=== PATIENT | female | born 1945 | race Caucasian/White ===

== ENCOUNTER 2024-11-30 10:06 | Inpatient (IN) ==
[2024-11-30] MEDS ORDERED: ALBUTEROL 0.083% NEB NEB PRN (11:04)
[2024-11-30] MEDS: DUONEB NEB SCH (11:09)
[2024-11-30] MEDS: OMNIPAQUE 350 MG/ML 100ML IVP ONE (11:30)
--- NOTE | 2024-11-30 12:29 | PCM ---
Date of Service Date Seen by Provider: 11/30/24 Time Seen by Provider: 08:30 Admit Day/Time Admission Date: 11/30/24 Reason for Admission Chief Complaint: ACUTE HYPOXIC, RESPIRATORY FAILURE Hospital Provider Hospital Provider: ABHIJEET KIRAN, [facility] [place] Care Physician Primary Care Physician: ABE DOUGHERTY MD History of Present Illness History of Present Illness: Patient is a 79 year old female with pmhx of CAD s/p CABG, hypertension, SSS s/p pacemaker, hyperlipidemia, ischemic bowel, severe PVD s/p RLE BKA who presents to swingbed program from [facility] for further therapy. Patient was admitted at [facility] from 11/16-11/23. In September of 2024 she underwent bilateral lower ext revascularizations consisting of a right ileo profunda femoral bypass on the right and an extended left illiofemoral and profunda femoral endarterectomy and patch angioplasty on the left. Her LLE showed great improvement with this. However she continued ot have RLE pain and underwent a distal lower ext arterial bypass with bovine carotid artery conduit. She presented again with continued RLE pain. US showed continued occluded vessels. She was admitted and BKA was discussed. She agreed. Post surgery, cilostazol was stopped and she was continued on ASA, xarelto, and statin. Overall she has done well post op but is requiring therapy. Plan is to go home with son following swingbed. Patient complains of some phantom limb pain, specifically her pinky toe. She states her gabapentin was started a couple weeks ago at least. Son states patient does sometimes get confused in late afternoons between 1500- 1800, but it usually resolves by nighttime. Initially, patient was doing very well in swingbed program. Tolerating therapy and meeting goals. Plan was previously discharge today. However, around 5 am on 11/28 patient was coughing, gasping for air, and more confused than baseline. Found to have O2 sat in the upper 80s. She was placed on 2L and sat improved to low 90s. Chest x-ray completed as well as labs. CBC showed white count of 18. Chest xray showed right sided pneumonia. Due to patient being in and out of the hospital, she has been treated with zosyn to cover hospital acquired pneumonia. Oxygen was weaned down to 1L yesterday morning and patient had been tolerating well. Fevers had resolved until yesterday evening around 1730. At that time, O2 sat was again in the upper 80s and fever was 101. Oxygen increased back to 2L at that time. Another hypoxia episode occurred around 0330 this morning and patient is now requiring 3L. BNP obtained with am labs and found to be >3000. Patient does have history of CABG and OK in the past. Due to continued medical decline despite efforts, patient admitted to inpatient [facility] Medical History (Updated 11/30/24 @ 14:14 by TESSIE MANZO RN) Pneumonia J18.9 - Pneumonia, unspecified organism (ICD-10) Lung mass R91.8 - Other nonspecific abnormal finding of lung field (ICD-10) Amputation of right lower extremity below knee S88.111A - Complete traumatic amputation at level between knee and ankle, right lower leg, initial encounter (ICD-10) Bypass graft stenosis Right leg. Cow vein used. T82.858A - Stenosis of other vascular prosthetic devices, implants and grafts, initial encounter (ICD-10) Ruptured appendix K35.32 - Acute appendicitis with perforation, localized peritonitis, and gangrene, without abscess (ICD-10) Artery dissection Both legs. Arteries taken out of both armpits for resection of legs. I77.70 - Dissection of unspecified artery (ICD-10) Pacemaker Z95.0 - Presence of cardiac pacemaker (ICD-10) Heart attack I21.9 - Acute myocardial infarction, unspecified (ICD-10) Surgical History History of bowel resection Removed 80cm of small bowel. Z90.49 - Acquired absence of other specified parts of digestive tract (ICD- 10) History of hysterectomy Z90.710 - Acquired absence of both cervix and uterus (ICD-10) Family History Mother Lupus (systemic lupus erythematosus) FATHER Cancer Social History Smoking and tobacco status: Former smoker Allergies Allergies Allergy/AdvReac Type Severity Reaction Status Date / Time nitrofurantoin AdvReac Verified 11/23/24 18:05 Erythromycin AdvReac Uncoded 11/23/24 18:05 Current Medications Home Medications Acetaminophen (Acetaminophen 325 Mg Tablet) 650 mg PO Q4H PRN PRN Reason: Pain Albuterol Sulfate (Albuterol Sulfate 0.083% Vial.Neb) 2.5 mg NEB RTQ4H PRN PRN Reason: Wheezing Albuterol/Ipratropium (Ipratropium/Albuterol Vial.Neb) 3 ml NEB RTQ6H [facility] Last Admin: 11/30/24 11:09 Dose: 3 ml Alprazolam (Alprazolam 0.25 Mg Tablet) 0.25 mg PO BEDTIME PRN PRN Reason: Anxiety Ascorbic Acid (Ascorbic Acid 500 Mg Tablet) 500 mg PO DAILY [facility] Aspirin (Aspirin 81 Mg Tablet.Dr) 81 mg PO DAILY [facility] Atorvastatin Calcium (Atorvastatin Calcium 20 Mg Tablet) 40 mg PO DAILY [facility] Buspirone HCl (Buspirone Hcl 10 Mg Tablet) 5 mg PO 2XD [facility] Calcium Carbonate/Glycine (Calcium Carbonate 500 Mg Tab.Chew) 500 mg PO Q6HR PRN PRN Reason: Heartburn Citalopram Hydrobromide (Citalopram Hydrobromide 20 Mg Tablet) 40 mg PO DAILY [facility] Docusate Sodium (Docusate Sodium 100 Mg Capsule) 100 mg PO BID [facility] Doxycycline Hyclate (Doxycycline Hyclate 100 Mg Capsule) 100 mg PO Q12HR [facility] Stop: 12/03/24 20:59 Famotidine (Famotidine 20 Mg Tablet) 20 mg PO BIDAC2 [facility] Furosemide (Furosemide Inj 20 Mg/2 Ml Vial) 20 mg IVP Q8HR [facility] Gabapentin (Gabapentin 300 Mg Capsule) 300 mg PO TID [facility] Piperacillin Sod/Tazobactam (Sod 4.5 gm/ Sodium Chloride) 100 mls @ 200 mls/hr IV Q6HR [facility] Stop: 12/03/24 14:29 Non-Formulary Medication (Rivaroxaban) 2.5 mg PO BID [facility] Non-Formulary Medication (Bisacodyl) 5 mg PO DAILY PRN PRN Reason: Constipation Non-Formulary Medication (Sennosides-Docusate Sodium [Colace 2-In-1]) 1 tab-cap PO BID [facility] Ondansetron HCl (Ondansetron Hcl 4 Mg Tablet) 4 mg PO Q6H PRN PRN Reason: Nausea / Vomiting Oxycodone/Acetaminophen (Oxycodone/Acetaminophen 10/325 Mg Tablet) 1 tab PO Q4HR PRN PRN Reason: Pain Last Admin: 11/30/24 13:25 Dose: 1 tab Pantoprazole Sodium (Pantoprazole Sodium 40 Mg Vial) 40 mg IVP DAILY MARY JANE Polyethylene Glycol (Polyethylene Glycol 17 Gm Powd.Pack) 17 gm PO DAILY PRN PRN Reason: Constipation alprazolam 0.25 mg tablet 0.25 mg PO BEDTIME PRN anxiety 11/23/24 [History Confirmed 11/30/24] ascorbic acid (vitamin C) 500 mg tablet (C-500) 500 mg PO DAILY 11/23/24 [History Confirmed 11/30/24] aspirin 81 mg tablet,delayed release (Adult Low Dose Aspirin) 81 mg PO DAILY 11/23/24 [History Confirmed 11/30/24] atorvastatin 40 mg tablet 40 mg PO DAILY 11/23/24 [History Confirmed 11/30/24] buspirone 5 mg tablet 5 mg PO 2XD 11/23/24 [History Confirmed 11/30/24] citalopram 40 mg tablet 40 mg PO DAILY 11/23/24 [History Confirmed 11/30/24] gabapentin 100 mg capsule 100 mg PO 3XD 11/23/24 [History Confirmed 11/30/24] hydrocodone 5 mg-acetaminophen 325 mg tablet 2 tab PO Q4H PRN Moderate pain 11/23/24 [History Confirmed 11/30/24] naloxone 4 mg/actuation nasal spray 4 mg intranasal Q2-3M PRN opioid overdose 11/23/24 [History Confirmed 11/30/24] oxycodone 10 mg tablet 10 mg PO Q4HR PRN Moderate to severe pain 11/23/24 [History Confirmed 11/30/24] rivaroxaban 2.5 mg tablet 2.5 mg PO BID 11/23/24 [History Confirmed 11/30/24] sennosides 8.6 mg-docusate sodium 50 mg tablet (Colace 2-In-1) 1 tab-cap PO BID 11/23/24 [History Confirmed 11/30/24] acetaminophen 325 mg tablet 650 mg PO Q4H PRN Mild to moderate pain 11/30/24 [History Confirmed 11/30/24] amoxicillin 875 mg-potassium clavulanate 125 mg tablet 1 tab PO Q12H 11/30/24 [History Confirmed 11/30/24] bisacodyl 5 mg tablet 5 mg PO DAILY PRN constipation 11/30/24 [History Confirmed 11/30/24] calcium carbonate 500 mg PO Q6HR PRN heartburn 11/30/24 [History Confirmed 11/30/24] docusate sodium 100 mg capsule (Colace) 100 mg PO BID 11/30/24 [History Confirmed 11/30/24] gabapentin 300 mg capsule 300 mg PO TID 11/30/24 [History Confirmed 11/30/24] ipratropium 0.5 mg-albuterol 3 mg (2.5 mg base)/3 mL nebulization soln 3 ml inhalation Q6H 11/30/24 [History Confirmed 11/30/24] omeprazole 40 mg capsule,delayed release 40 mg PO QDAC2 11/30/24 [History Confirmed 11/30/24] ondansetron HCl 4 mg tablet 4 mg PO Q6H PRN nausea and vomiting 11/30/24 [History Confirmed 11/30/24] polyethylene glycol 3350 17 gram/dose oral powder (Miralax) 17 g PO DAILY PRN constipation 11/30/24 [History Confirmed 11/30/24] Opioid Naive vs. Tolerant Does Patient Take Opioids?: Yes Is Patient Opioid Naive?: No What is Opioid Naive?: *Opioid Naive implies the patient is not already taking opioids or not chronically receiving opioids on a daily basis. *PRN dosing is not "usually" associated with tolerance. *Patients are at higher risk of over-sedation and aspiration. Is Patient Opioid Tolerant?: No What is Opioid Tolerant?: *Opioid Tolerance implies less than the expected response to an opioid. *Acquired tolerance is defined by the patient taking 60mg of oral morphine daily (or equianalgesic dose of another opioid) for 1 week or more. *Often associated with chronic pain. *May take more than usual dose to achieve desired pain control. Review of Systems Constitutional: Reports Fever Eyes: Reports No symptoms Ears: Reports No symptoms Nose: Reports No symptoms Mouth: Reports No symptoms Throat: Reports No symptoms Cardiovascular: Reports No symptoms Respiratory: Reports Cough and Shortness of air Gastrointestinal: Reports No symptoms Genitourinary: Reports No Symptoms Musculoskeletal: Reports No symptoms Endocrine: Reports No symptoms Hematology: Reports No symptoms Immunology: Reports No symptoms Neurological: Reports No symptoms Psychiatric: Reports No symptoms Physical examination Most Recent Vital Signs: Most Recent Vital Signs Telemetry Heart Rate 81 11/29/24 07:00 Telemetry SPO2 92 L 11/29/24 07:00 Appearance: Positive No Apparent Distress and Thin Skin: Positive Warm, Good Turgor and Good Color Neck: Positive Supple and Midline Trachea Chest/Lungs: Positive Symmetrical With Equal Breath Sounds, Rhonci and Other (fi ne crackles to R lung base) Heart: Positive RRR and Pulses Normal GI/: Positive Soft, Nontender, Bowel Sounds Normal and No Distention Musculoskeletal: Positive Not Examined Extremities: Positive Amputations (R BKA, dressing intact), Intact Peripheral Pulses and Stable Joints Without Laxity Neurological: Positive Sensation Intact, Motor intact, Reflexes Intact, Alert and Oriented (person, place) Imaging Imaging: EXAM: CHEST RADIOGRAPH TECHNIQUE: Single frontal chest radiograph. HISTORY: Shortness of breath. COMPARISON: 11/05/2023. FINDINGS: Cardiomediastinal silhouette in central pulmonary vessels appear normal with decreased lung expansion. New reticular appearing air space disease in the right upper lobe and mid right lung. No associated pleural effusion or pneumothorax. The left lung appears clear. Bones and soft tissues are otherwise unchanged. IMPRESSION: 1. New reticular airspace disease in the right upper lobe and right midlung concerning for pneumonia without associated pleural effusion. No additional acute process is identified. Review Statement Review Statement: I have independently reviewed and interpreted the labs/EKGs/imaging that were ordered by the ER provider. I have reviewed all outside records that are available currently in our EMR including imaging/notes/labs from previous visit s. Plan Plan: 1. Acute Hypoxic Respiratory Failure in setting of HAP and CHF - wean oxygen as tolerated, nebs, diuresis, checking chest CT to r/o other etiologies 2. HAP - zosyn Q6H, add doxy for atypical coverage, check MRSA, strep pneumo, legionella, and respiratory panel 3. New onset CHF - last echo 05/2022 EF 55-60% with left diastolic dysfunction, echo ordered, lasix 20 mg IVP Q8H, I&O, daily weight 4. 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 Dougherty, has f/u on 12/05. Plan for prosthesis in future. Dressing changes every other day with xeroform over incision, gauze wrap, and then bee wrap. Change prn if soiled. No drainage noted on dressings today. PTOT. 5. 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 gabapentin ordered 300 tid and oxy was changed to percocet when she first arrived. Cont xarelto, aspirin and statin. 6. Mood disorder - Worsened by recent surgery and loss of limb, reasonably so. Cont home meds. DVT Prophylaxis: Xarelto Time Spent: Greater than 80 minutes spent with patient, 50% of the time spent with this patient was devoted to counseling and coordination of care. [facility] minutes spent discussing advance care planning. Disposition: Admit to: Med/Surg Inpatient Discussed Plan of Care with Dr. Tamar Salazar. Medications Medication Orders: Medications Ordered Category Date Time Status Albuterol Sulfate 0.083% Neb [Albuterol 0.083% Neb] Meds 11/30/24 11:04 Active 2.5 mg NEB RTQ4H PRN Doxycycline Hyclate Meds 11/30/24 21:00 Active 100 mg PO Q12HR Furosemide [Lasix] Meds 11/30/24 14:00 Active 20 mg IVP Q8HR Ipratropium/Albuterol Neb [Duoneb] Meds 11/30/24 11:00 Active 3 ml NEB RTQ6H Piperacillin Sodium/Tazobactam [Zosyn 4.5 gm] 4.5 gm Meds 11/30/24 14:30 Active 0.9 % Sodium Chloride [Sodium Chloride 100Ml] 100 ml IV Q6HR Additional Comments Additional Comments: CT scan and Echo results discussed with patient and family. Continue above treatment plan. Patient will need referral for lung biopsy. EXAM: CHEST CTA WITH CONTRAST (PULMONARY ARTERY) COMPARISON: 02/14/2021. FINDINGS: Pulmonary Embolism: - Diagnostic quality: Adequate. - Central (Main/Lobar/Interlobar): No embolus. Dilated. - Peripheral (Segmental/Subsegmental): No embolus. - Right ventricle/Left ventricle ratio: Normal. Lines, Tubes, Devices: Sternal wires and mediastinal clips. Left-sided dual chamber pacemaker. Lung Parenchyma and Airways: Central airways are patent without endobronchial lesion. Mild atelectasis at the lung bases posteriorly. Patchy air space disease in the right upper lobe posteriorly and in the right lower lobe superiorly. Mass in the right upper lobe medially measuring 4.2 x 3.8 cm in AP and transverse dimensions. Calcified granuloma in the left upper lobe anteriorly. No other mass or nodule. Pleural Space: Small bilateral pleural effusions with right larger than left. No pneumothorax. Thoracic Inlet, Mediastinum, and Rae: Thyroid gland is normal. . Right hilar thickening with lymphadenopathy measuring up to 1.2 cm. No left hilar lymphadenopathy. Benign calcified left hilar lymph nodes. Fluid distending the esophagus. Heart, Vessels, and Pericardium: The thoracic aorta is not dilated. No aortic dissection. Calcification in the aorta consistent with atherosclerosis. Coronary artery calcification. The heart chambers are not enlarged. There is no pericardial effusion or thickening. Bones and Soft Tissues: There is no fracture or lytic lesion. Chest wall soft tissues are unremarkable. Upper Abdomen: Benign punctate calcifications in the spleen. Normal visualized portions of liver and adrenals. Cholecystectomy clips. IMPRESSION: 1. No evidence of pulmonary embolism. Dilated central pulmonary arteries consistent with pulmonary hypertension. 2. Mass in the right upper lobe measuring 4.2 cm. Mild right hilar lymphadenopathy. Suspicious for neoplasm. 3. Previous median sternotomy. Dual chamber pacemaker. 4. Mild atelectasis at the lung bases posteriorly. 5. Patchy pneumonia in the right lung. 6. Fluid distension of the esophagus. 7. Atherosclerosis and coronary artery calcification. Number a previous cholecystectomy. 9. Otherwise unremarkable CT scan of the chest.
--- NOTE | 2024-11-30 12:32 | CT ---
EXAM: CHEST CTA WITH CONTRAST (PULMONARY ARTERY) HISTORY: Chest pain and shortness of breath. TECHNIQUE: CTA acquisition of the chest from the thoracic inlet to the upper abdomen following IV con trast administration timed to filling of the pulmonary artery. IV Contrast: 100 mL of Omnipaque 350 administered. 3D/MIP/VR images were utilized. CT Dose Reduction Techniques Employed: Yes. COMPARISON: 02/14/2021. FINDINGS: Pulmonary Embolism: - Diagnostic quality: Adequate. - Central (Main/Lobar/Interlobar): No embolus. Dilated. - Peripheral (Segmental/Subsegmental): No embolus. - Right ventricle/Left ventricle ratio: Normal. Lines, Tubes, Devices: Sternal wires and mediastinal clips. Left-sided dual chamber pacemaker. Lung Parenchyma and Airways: Central airways are patent without endobronchial lesion. Mild atelectas is at the lung bases posteriorly. Patchy air space disease in the right upper lobe posteriorly and i n the right lower lobe superiorly. Mass in the right upper lobe medially measuring 4.2 x 3.8 cm in A P and transverse dimensions. Calcified granuloma in the left upper lobe anteriorly. No other mass or nodule. Pleural Space: Small bilateral pleural effusions with right larger than left. No pneumothorax. Thoracic Inlet, Mediastinum, and Rae: Thyroid gland is normal. . Right hilar thickening with lymph adenopathy measuring up to 1.2 cm. No left hilar lymphadenopathy. Benign calcified left hilar lymph nodes. Fluid distending the esophagus. Heart, Vessels, and Pericardium: The thoracic aorta is not dilated. No aortic dissection. Calcificat ion in the aorta consistent with atherosclerosis. Coronary artery calcification. The heart chamber s are not enlarged. There is no pericardial effusion or thickening. Bones and Soft Tissues: There is no fracture or lytic lesion. Chest wall soft tissues are unremarkab le. Upper Abdomen: Benign punctate calcifications in the spleen. Normal visualized portions of liver an d adrenals. Cholecystectomy clips. IMPRESSION: 1. No evidence of pulmonary embolism. Dilated central pulmonary arteries consistent with pulmonary hypertension. 2. Mass in the right upper lobe measuring 4.2 cm. Mild right hilar lymphadenopathy. Suspicious for neoplasm. 3. Previous median sternotomy. Dual chamber pacemaker. 4. Mild atelectasis at the lung bases posteriorly. 5. Patchy pneumonia in the right lung. 6. Fluid distension of the esophagus. 7. Atherosclerosis and coronary artery calcification. Number a previous cholecystectomy. 9. Otherwise unremarkable CT scan of the chest. All CT scans are performed using dose optimization techniques as appropriate to the performed exam an d include at least one of the following: Automated exposure control, adjustment of the mA and/or kV according t o size, and the use of iterative reconstruction technique.
[2024-11-30] MEDS: PERCOCET 10-325 PO PRN (13:25)
[2024-11-30] MEDS ORDERED: MIRALAX PO PRN (14:13)
[2024-11-30] MEDS ORDERED: ZOFRAN TAB PO PRN (14:13)
[2024-11-30] MEDS ORDERED: TUMS CHEWABLE PO PRN (14:13)
[2024-11-30] MEDS ORDERED: TYLENOL PO PRN (14:13)
[2024-11-30] MEDS ORDERED: DULCOLAX PO PRN (14:31)
[2024-11-30] MEDS: ZOSYN 4.5 GM 4.5 GM in SODIUM CHLORIDE 100ML 100 ML IV SCH (14:58)
[2024-11-30] MEDS: NEURONTIN PO SCH (14:59)
[2024-11-30] MEDS: LASIX IVP SCH (14:59)
[2024-11-30] MEDS: PEPCID PO SCH (17:30)
[2024-11-30 18:05] VITALS: BMI 17.7
[2024-11-30] MEDS: RIVAROXABAN 2.5 MG PO SCH (20:19)
[2024-11-30] MEDS: DOXYCYCLINE HYCLATE PO SCH (20:19)
[2024-11-30] MEDS: COLACE PO SCH (20:19)
[2024-11-30] MEDS: BUSPAR PO SCH (20:19)
[2024-11-30] MEDS: XANAX PO PRN (20:19)
[2024-11-30] MEDS: SENNA PO SCH (20:19)
[2024-11-30] MEDS ORDERED: SENNOSIDES DOCUSATE SODIUM PO SCH (21:00)
[2024-11-30 21:15] LABS: BORDETELLA PARAPERTUSSIS (PCR) NOT DETECTED (NOT DETECT); BORDETELLA PERTUSSIS (PCR) NOT DETECTED (NOT DETECT); CHLAMYDIA PNEUMONIAE (PCR) NOT DETECTED (NOT DETECT); CORONAVIRUS 229E (PCR) NOT DETECTED (NOT DETECT); CORONAVIRUS HKU1 (PCR) NOT DETECTED (NOT DETECT); CORONAVIRUS NL63 (PCR) NOT DETECTED (NOT DETECT); CORONAVIRUS OC43 (PCR) NOT DETECTED (NOT DETECT); HUMAN METAPNEUMOVIRUS (PCR) NOT DETECTED (NOT DETECT); HUMAN RHINOVIRUS/ENTEROV (PCR) NOT DETECTED (NOT DETECT); INFLUENZA A H1 (PCR) NOT DETECTED (NOT DETECT); INFLUENZA A H1-2009 (PCR) NOT DETECTED (NOT DETECT); INFLUENZA A H3 (PCR) NOT DETECTED (NOT DETECT); INFLUENZA B (PCR) NOT DETECTED (NOT DETECT); MYCOPLASMA PNEUMONIAE (PCR) NOT DETECTED (NOT DETECT); PARAINFLUENZA VIRUS 1 (PCR) NOT DETECTED (NOT DETECT); PARAINFLUENZA VIRUS 2 (PCR) NOT DETECTED (NOT DETECT); PARAINFLUENZA VIRUS 3 (PCR) NOT DETECTED (NOT DETECT); PARAINFLUENZA VIRUS 4 (PCR) NOT DETECTED (NOT DETECT); RESPIRATORY SYNCYTIAL V (PCR) NOT DETECTED (NOT DETECT); SARS_COV_2 (PCR) NOT DETECTED (NOT DETECT)
[2024-11-30 22:10] LABS: ADENOVIRUS (PCR) NOT DETECTED (NOT DETECT)
[2024-12-01] MEDS: PROTONIX IVP SCH (05:02)
[2024-12-01 05:15] LABS: BASOPHILS # (AUTO) 0.1 K/uL (0-0.2); BASOPHILS % (AUTO) 0.8 % (0.0-3.0); EOSINOPHILS # (AUTO) 0.6 K/ul (0.0-0.7); EOSINOPHILS % (AUTO) 8.7 % (0.0-7.0); HEMATOCRIT 26.8 % (37.0-47.0); HEMOGLOBIN 8.4 g/dl (12.0-16.0); IMMATURE GRANULOCYTE % (AUTO) 0.5 % (0.0-5.0); LYMPHOCYTES # (AUTO) 0.9 K/uL (0.60-3.4); LYMPHOCYTES % (AUTO) 13.9 (10.0-50.0); MEAN CORPUSCULAR HEMOGLOBIN 28.5 pg (27.0-31.0); MEAN CORPUSCULAR HGB CONC 31.3 (31.8-35.4); MEAN CORPUSCULAR VOLUME 90.8 fl (81.0-99.0); MONOCYTES # (AUTO) 0.5 K/uL (0.4-2.0); MONOCYTES % (AUTO) 7.4 (0-10); NEUTROPHILS # (AUTO) 4.4 K/ul (2.0-6.9); NEUTROPHILS % (AUTO) 68.7 % (42.2-75.2); PLATELET COUNT 371 10^3/uL (140-440); RDW COEFFICIENT OF VARIATION 14.2 % (11.6-14.8); RED BLOOD COUNT 2.95 10^6/ul (4.20-5.40); WHITE BLOOD COUNT 6.46 K/ul (4.6-10.2)
[2024-12-01 05:26] LABS: ALANINE AMINOTRANSFERASE 19.1 U/L (0-35); ALBUMIN 2.94 g/dL (3.5-5.0); ALKALINE PHOSPHATASE 67.2 U/L (53-141); ASPARTATE AMINO TRANSFERASE 25.5 U/L (14-36); BILIRUBIN,TOTAL 0.4 mg/dL (0.2-1.3); BLOOD UREA NITROGEN 11.4 mg/dL (7-17); CALCIUM 8.56 mg/dL (8.4-10.2); CHLORIDE 95.7 mmol/L (98-107); CREATININE 0.65 mg/dL (0.60-1.30); GLUCOSE 98.4 mg/dL (74-106); POTASSIUM 3.09 mmol/L (3.5-5.1); SODIUM 134.5 mmol/L (134.5-145); TOTAL PROTEIN 5.7 g/dL (6.3-8.2)
[2024-12-01] MEDS: ASPIRIN EC PO SCH (09:28)
[2024-12-01] MEDS: LIPITOR PO SCH (09:31)
[2024-12-01] MEDS: K-DUR PO ONE (09:38)
[2024-12-01] MEDS: VITAMIN C PO SCH (09:38)
[2024-12-01] MEDS: CELEXA PO SCH (09:38)
--- NOTE | 2024-12-01 10:07 | RS.OTINEVL ---
Subjective Patient information Date of Evaluation: 12/01/24 Date of Arrival on Unit: 11/30/24 Admitted From:: Facility Transfer (Transfer from [facility] for swing bed.) Diagnosis: R BKA, Weakness, PRECAUTIONS: Fall risk Usual Living Arrangement: Alone Living Arrangement Comments: pt lives alone, however is going to go home with son at Discharge Home Environment: House, Stairs (few) (2 steps ) and Rail Medical History: Hypertension, Arthritis, Vascular Disease and Cancer (malignant melanoma L foot.) Medical History Comments:: Anxiety, Major depressive disorder, GERD, CAD, [place], PAD, SSS, ischemic bowel, osteoporosis LATEX ALLERGY?: No Surgical History: Cholecystectomy, Hysterectomy and CABG Surgical History Comments:: Pacemaker, R ileo profunda femoral bypass, L ilio femoral and profunda femora endarterectomy and patch angioplasty, Redo arterial bypass w bovine carotid artery conduit. Medications: see chart Subjective Information/ Patient Comments:: "I need to go to the bathroom." Level of function Prior to this admission, the patient could do the following:: Independent Selfcare, Independent ADL's, Independent Ambulation, Partially Dependent Ambulation, Perform Nurse Wound/Cooking, Drive and Participated in Social Activities Outside home Abilities prior to this admission: Pt was using a RW at home. Pt was living alone. Current Level of Function: Partially Dependent Comments: Pt is CGA with using RW today to transfer to the bathroom and toilet. Pt CGA for toilet transfer. Pt independent with personal hygiene and CGA for toilet management. Current Equipment Used at Home: Walker, wheeled Pain Assessment Pain Side: right Pain Location Body Site: R BKA Pain Aggravating Factors: Standing and Walking Pain Alleviating Factors: Ice and Medication Interventions Objective Patient Orientation: Person and Situation Current Interventions: IV's and Oxygen Interventions ROM Right Upper Extremity AROM: Slight limitation Left Upper Extremity AROM: Slight limitation Strength Right Upper Extremity: Mild Weakness Left Upper Extremity: Mild Weakness Sensation Right Upper Extremity: Intact/Normal Left Upper Extremity: Intact/Normal Balance Sitting Balance Static Sitting Balance: Good Dynamic Sitting Balance: Good Standing Balance Static Standing Balance: Fair Dynamic Standing Balance: Fair (Pt hops well with RW.) ADL Skills Self Feeding Self Feeding: Independent Grooming Grooming: Set Up Only Grooming Set-up: Sitting Bathing Bathing UE: Independent Bathing LE: Mod Assist and 1 person assist Bathing Set-up: Shower Dressing Dressing UE: Independent Dressing LE: Supervision Toilet Management Toilet Hygiene: Independent Toilet Clothing Management: Supervision Functional Mobility Bed Mobility Rolling R/L: Independent Scooting: Independent Supine to Sit: Independent Transfers Sit to Stand: CGA Stand to Sit: CGA Stand Pivot Transfers: CGA Ambulation Weight Bearing Status: FWB Assistive Device Used: Rolling Walker Orthotic/Prosthetic Device: No Assistance needed with Ambulation: CGA Safety Awareness Safety Awareness: Good GULSHAN INDEX SCORE: . Additional Treatment Performed Additional units charged ADL: 15 Time with patient Length of Evaluation: 32 Total treatment time: 34 Activities Do you enjoy playing games?: Yes Would you be interested in leaving your room for activities?: Yes Would you enjoy group activities?: Yes Do you have difficulty with your vision?: Yes Patient Interests:: Reading Books/Magazines, Watching Television, Puzzles/Games and Visiting/Socializing Patient Education Patient Education: Home Exercise Program and Education of Plan of Care Teaching Recipient: Patient and Family Teaching Methods: Discussion and Demonstration Assessment Problem List:: Decreased level of function, Requires training/education, Decreased safety/Risk of falls, Weakness and Pain limits previous level of function Rehab Potential: Good Further Therapy Indicated?: Yes Evaluation Complexity: HISTORY: Medium, EXAM OF BODY SYSTEMS: Medium and CLINICAL DECISION MAKING: Medium Patient's Goal(s): Pt to be able to take care of herself at her son's house for a while. Short Term Goals Goals GOAL 1: Pt to increase standing for grooming at the sink to 10 min. Goal to be met by: 12/03/24 GOAL 2: Pt to be sup for 1 arm pulling up pants after toileting. Goal to be met by: 12/03/24 GOAL 3: Pt to increase BUE strength to 5/5 to increase safety of hop with RW. Goal to be met by: 12/03/24 GOAL 4: Pt to increase dyn. std. bal. on LLE w/RW to F+ to increase safety of ADLs. Goal to be met by: 12/03/24 GOAL 5: Pt to complete toilet transfers SUP with RW. Goal to be met by: 12/03/24 GOAL 6: Pt to increase LE dressing of clothes to be independent. Goal to be met by: 12/03/24 Longterm Goals GOAL 1: Pt to be Independent with ADLs. Goal to be met by: 12/04/24 GOAL 2: Pt to increase dyn. std. bal. to G-. Goal to be met by: 12/04/24 GOAL 3: Pt to be Sup or SBA for ADLS. Goal to be met by: 12/04/24 Plan Plan of Care: Therapeutic EX, Neuromuscular Re-Educ, Therapeutic Activity and Self-Care/Home Management Modalities: Cold Pack/Cryotherapy Frequency of Treatment: 1-2 X day, as tolerated Duration of Treatment: 4 days Anticipated Discharge Destination: Home (Home with her son.) Treatment Diagnosis (ICD 10 Codes): Need for assistance with personal care Z74.1, Weakness R53.1, Impaired bal R53.1 Has the Physician been added for Co-signature?: Yes
[2024-12-01] MEDS: MIRALAX PO SCH (10:29)
--- NOTE | 2024-12-01 10:47 | ECHO2D ---
Date of Exam: 11/30/2024 Ordering Physician: HOSPITALIST--YASMINE Room #: 112 Reason for Echo: SOB, 2007 CABG M-Mode Normal Adult Results LV Dimensions Normal Adult Results AoV Opening excursions >1.6 >1.6 LVEDD-base- 3.5-5.8 4.6 Ao root dimensions 2.0-3.7 3.3 LVESD-base- 3.1-4.6 L. Atrium dimensions 1.9-3.8 4.9 Post. Wall thickness 0.8-1.1 1.2 IV septum (thickness) 0.7-1.2 1.2 Post. Wall excursion 0.72-1.3 NORMAL Septal motion NORMAL Systolic motion R. Ventricular cavity 1.5-2.0 3.5 LVEF 60% 60% Paradoxical septal wall motion NORMAL 2-D : LEFT ATRIAL, RIGHT ATRIAL AND RIGHT VENTRICLE CAVITIES ENLARGED-- MITRAL VALVE, AORTIC VALVE AND TRICUSPID VALVES ARE NORMAL--NO EFFUSION, NO THROMBUS, NORMAL LEFT VENTRICLE SIZE AND NORMAL LEFT VENTRICLE CONTRACTILITY M-MODE: MV: NORMAL AV: NORMAL TV: NORMAL PV: CHAMBER SIZE: ENLARGED RIGHT ATRIAL, RIGHT VENTRICLE AND LEFT ATRIAL CAVITIES WALL MOTION: NORMAL PERICARDIUM: NORMAL INTERPRETATION: 1. BORDERLINE LEFT VENTRICLE HYPERTROPHY WITH ENLARGED LEFT ATRIAL CAVITY 2. ENLARGED RIGHT ATRIAL AND RIGHT VENTRICLE CAVITIES 3. NORMAL LEFT VENTRICLE SIZE AND LEFT VENTRICLE CONTRACTILITY 4. COLOR FLOW --MILD TO MODERATE MITRAL REGURGITATION, MODERATE AORTIC REGURGITATIONS MTDD
--- NOTE | 2024-12-01 11:01 | PCM.PROG ---
Date/Time Seen Date Seen by Provider: 12/01/24 Time Seen by Provider: 09:15 Provider Provider[facility] Chief Complaint Chief Complaint: ACUTE HYPOXIC, RESPIRATORY FAILURE Subjective Subjective: Slept well last night. Feeling much better today. No fever in 24 hours. Still on 3L this morning. Phantom pain severe at this time. Has not had pain meds since she went to sleep last night. Objective Appearance: Positive No Apparent Distress Chest/Lungs: Positive Symmetrical With Equal Breath Sounds and Clear to Auscultation Bilaterally (diminished) Heart: Positive RRR and Pulses Normal GI/: Positive Soft, Nontender, Bowel Sounds Normal and No Distention Musculoskeletal: Positive Other (incision to R BKA CDI, no erythema or drainage, minimal swelling) Neurological: Positive Sensation Intact, Motor intact, Reflexes Intact, Alert and Oriented (person, place) Vital Signs Vital Signs: Vital Signs: Last 24 Hours 11/30/24 13:00 11/30/24 14:09 11/30/24 18:23 Temperature 98.4 F 98.8 F Temperature Source Oral Temporal Artery Scan Pulse Rate 74 80 Respiratory Rate 18 18 Blood Pressure 91/57 L 109/77 Blood Pressure Mean 68 87 Blood Pressure Location Left Arm Left Arm Blood Pressure Position Sitting Sitting O2 Sat by Pulse Oximetry 95 94 L Oxygen Delivery Method Nasal Cannula Nasal Cannula Oxygen Flow Rate 3 3 Height Weight Telemetry Type Remote Telemetry Telemetry Monitoring Started Telemetry Heart Rate 70 Telemetry SPO2 94 EKG MN Interval 0.19 EKG QRS Interval 0.08 Telemetry Strip Reading NSR with PVC's and PAC's 11/30/24 19:00 11/30/24 19:20 11/30/24 20:00 Temperature Temperature Source Pulse Rate Respiratory Rate Blood Pressure Blood Pressure Mean Blood Pressure Location Blood Pressure Position O2 Sat by Pulse Oximetry 97 Oxygen Delivery Method Nasal Cannula Nasal Cannula Oxygen Flow Rate 3 3 Height Weight Telemetry Type Remote Telemetry Telemetry Monitoring Continues Telemetry Heart Rate 69 Telemetry SPO2 96 EKG MN Interval 0.20 EKG QRS Interval 0.06 Telemetry Strip Reading SR 11/30/24 21:00 12/01/24 01:00 12/01/24 05:06 Temperature 97.7 F 99 F Temperature Source Temporal Artery Scan Temporal Artery Scan Pulse Rate 65 75 Respiratory Rate 20 20 Blood Pressure 120/67 146/81 H Blood Pressure Mean 84 102 Blood Pressure Location Left Arm Right Arm Blood Pressure Position Supine Supine O2 Sat by Pulse Oximetry 97 98 Oxygen Delivery Method Nasal Cannula Nasal Cannula Oxygen Flow Rate 3 3 Height Weight Telemetry Type Remote Telemetry Telemetry Monitoring Continues Telemetry Heart Rate 61 Telemetry SPO2 97 EKG MN Interval EKG QRS Interval 0.06 Telemetry Strip Reading PACED 12/01/24 05:07 12/01/24 05:25 12/01/24 07:00 Temperature Temperature Source Pulse Rate Respiratory Rate Blood Pressure Blood Pressure Mean Blood Pressure Location Blood Pressure Position O2 Sat by Pulse Oximetry 98 Oxygen Delivery Method Nasal Cannula Oxygen Flow Rate 3 Height Weight 47.7 kg Telemetry Type Remote Telemetry Telemetry Monitoring Continues Telemetry Heart Rate 71 Telemetry SPO2 98 EKG MN Interval 0.19 EKG QRS Interval 0.09 Telemetry Strip Reading Underlying SR with PAC's; Atrial Paced 12/01/24 09:00 12/01/24 10:00 12/01/24 10:26 Temperature Temperature Source Pulse Rate Respiratory Rate Blood Pressure Blood Pressure Mean Blood Pressure Location Blood Pressure Position O2 Sat by Pulse Oximetry 96 Oxygen Delivery Method Nasal Cannula Nasal Cannula Oxygen Flow Rate 3 2 Height 5 ft 2 in Weight 47.7 kg Telemetry Type Telemetry Monitoring Telemetry Heart Rate Telemetry SPO2 EKG MN Interval EKG QRS Interval Telemetry Strip Reading Lab Results Lab Results: Lab Results: Last 24 Hours 12/01/24 11/30/24 04:58 21:12 WBC 6.46 D RBC 2.95 L Hgb 8.4 L Hct 26.8 L MCV 90.8 MCH 28.5 MCHC 31.3 L RDW Coeff of Po 14.2 Plt Count 371 Immature Gran % (Auto) 0.5 Neut % (Auto) 68.7 Lymph % (Auto) 13.9 [place] % (Auto) 7.4 Eos % (Auto) 8.7 H Baso % (Auto) 0.8 Neut # (Auto) 4.4 Lymph # (Auto) 0.9 [place] # (Auto) 0.5 Eos # (Auto) 0.6 Baso # (Auto) 0.1 Immature Gran # (Auto) 0.0 Sodium 134.5 Potassium 3.09 L Chloride 95.7 L Carbon Dioxide 32.0 H Anion Gap 9.89 BUN 11.4 Creatinine 0.65 Estimated GFR (MDRD) 88.00 BUN/Creatinine Ratio 17.53 Glucose 98.4 Calcium 8.56 Total Bilirubin 0.40 AST 25.5 ALT 19.1 Alkaline Phosphatase 67.2 Total Protein 5.70 L Albumin 2.94 L Globulin 2.76 Albumin/Globulin Ratio 1.06 Adenovirus (PCR) Not detected B. pertussis DNA (PCR) Not detected B.parapertussis DNA PCR Not detected C. pneumoniae DNA (PCR) Not detected Coronavirus OC43 (PCR) Not detected Coronavirus HKU1 (PCR) Not detected Coronavirus 229E (PCR) Not detected Coronavirus NL63 (PCR) Not detected Human Metapneumovir PCR Not detected Influenza A (H1) PCR Not detected Influ A (H1N1/09) PCR Not detected Influenza A (H3) PCR Not detected Influenza Type A (PCR) Not detected Influenza B (RT-PCR) Not detected M. pneumoniae (PCR) Not detected Parainfluenza 1 (PCR) Not detected Parainfluenza 2 (PCR) Not detected Parainfluenza 3 (PCR) Not detected Parainfluenza 4 (PCR) Not detected RSV (PCR) Not detected Entero/Rhino (PCR) Not detected SARS-CoV-2 (PCR) Not detected Additional Comments Additional Comments: I have independently reviewed and interpreted the labs/EKGs/imaging ordered during this hospital stay. I have reviewed outside records that are available in our EMR that pertain to medical stay including imaging/notes/labs from previous visits. Active Medications Active Medications: Medications Generic Name Dose Route Start Last Admin Trade Name Freq PRN Reason Stop Dose Admin Acetaminophen 650 mg 11/30/24 14:13 Acetaminophen 325 Mg Tablet PO Q4H PRN Pain Albuterol Sulfate 2.5 mg 11/30/24 11:04 Albuterol Sulfate 0.083% Vial.Neb NEB RTQ4H PRN Wheezing Albuterol/Ipratropium 3 ml 11/30/24 11:00 12/01/24 05:19 Ipratropium/Albuterol Vial.Neb NEB 3 ml RTQ6H MARY JANE Administration Alprazolam 0.25 mg 11/30/24 14:13 11/30/24 20:19 Alprazolam 0.25 Mg Tablet PO 0.25 mg BEDTIME PRN Administration Anxiety Amoxicillin/Clavulanate Potassium 1 tab 12/01/24 11:00 Amoxicillin/Potassium Clav 875/125 Mg Tablet PO 12/04/24 19:00 BIDWM2 MARY JANE Ascorbic Acid 500 mg 12/01/24 09:00 12/01/24 09:38 Ascorbic Acid 500 Mg Tablet PO 500 mg DAILY MARY JANE Administration Aspirin 81 mg 12/01/24 07:30 12/01/24 09:28 Aspirin 81 Mg Tablet. PO 81 mg DAILYWM2 MARY JANE Administration Atorvastatin Calcium 40 mg 12/01/24 09:00 12/01/24 09:31 Atorvastatin Calcium 20 Mg Tablet PO 40 mg DAILY MARY JANE Administration Bisacodyl 5 mg 11/30/24 14:31 Bisacodyl 5 Mg Tablet.Dr PO DAILY PRN Constipation Buspirone HCl 5 mg 11/30/24 21:00 12/01/24 09:39 Buspirone Hcl 10 Mg Tablet PO 5 mg 2XD MARY JANE Administration Calcium Carbonate/Glycine 500 mg 11/30/24 14:13 Calcium Carbonate 500 Mg Tab.Chew PO Q6HR PRN Heartburn Citalopram Hydrobromide 40 mg 12/01/24 09:00 12/01/24 09:38 Citalopram Hydrobromide 20 Mg Tablet PO 40 mg DAILY MARY JANE Administration Docusate Sodium 100 mg 11/30/24 21:00 12/01/24 09:35 Docusate Sodium 100 Mg Capsule PO 100 mg BID MARY JANE Administration Doxycycline Hyclate 100 mg 11/30/24 21:00 12/01/24 09:30 Doxycycline Hyclate 100 Mg Capsule PO 12/03/24 20:59 100 mg Q12HR MARY JANE Administration Famotidine 20 mg 11/30/24 17:00 12/01/24 05:02 Famotidine 20 Mg Tablet PO 20 mg BIDAC2 MARY JANE Administration Furosemide 20 mg 12/01/24 18:00 Furosemide Inj 20 Mg/2 Ml Vial IVP BIDAC2 MARY JANE Gabapentin 300 mg 11/30/24 15:00 12/01/24 09:34 Gabapentin 300 Mg Capsule PO 300 mg TID MARY JANE Administration Non-Formulary Medication 2.5 mg 11/30/24 21:00 12/01/24 09:41 Rivaroxaban PO 2.5 mg BID MARY JANE Administration Ondansetron HCl 4 mg 11/30/24 14:13 Ondansetron Hcl 4 Mg Tablet PO Q6H PRN Nausea / Vomiting Oxycodone/Acetaminophen 1 tab 11/30/24 13:13 12/01/24 09:32 Oxycodone/Acetaminophen 10/325 Mg Tablet PO 1 tab Q4HR PRN Administration Pain Pantoprazole Sodium 40 mg 12/01/24 06:00 12/01/24 05:02 Pantoprazole Sodium 40 Mg Vial IVP 40 mg QDAC2 MARY JANE Administration Polyethylene Glycol 17 gm 12/01/24 10:30 12/01/24 10:29 Polyethylene Glycol 17 Gm Powd.Pack PO 17 gm DAILY MARY JANE Administration Sennosides 8.6 mg 11/30/24 21:00 12/01/24 09:36 Sennosides 8.6 Mg Tablet PO 8.6 mg BID MARY JANE Administration Sodium Chloride 1 syr 12/01/24 05:00 12/01/24 05:02 0.9% Sodium Chloride 10 Ml Disp.Syrin IVF 1 syr Q8HR MARY JANE Administration Plan Plan: 1. Acute Hypoxic Respiratory Failure in setting of HAP and CHF - Unchanged, will trial to wean oxygen as tolerated today, nebs, diuresis 2. HAP - zosyn Q6H - transition to PO tomorrow, doxy for atypical coverage, check MRSA, strep pneumo, and legionella, respiratory panel negative, CT showing patchy R sided pneumonia and bilateral pleural effusions 3. New onset CHF - last echo 05/2022 EF 55-60% with left diastolic dysfunction, echo completed yesterday showing EF 60%, decrease lasix 20 mg IVP Q12H, I&O, daily weight 4. 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 Brinoes, has f/u on 12/05. Plan for prosthesis in future. Dressing changes every other day with xeroform over incision, gauze wrap, and then bee wrap. Change prn if soiled. No drainage noted on dressings today. PTOT. 5. 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 gabapentin ordered 300 tid and oxy was changed to percocet when she first arrived. Cont xarelto, aspirin and statin. 6. Mood disorder - Worsened by recent surgery and loss of limb, reasonably so. Cont home meds. 7. Lung Mass - new per family, refer to pulm for lung biopsy to r/o neoplasm DVT Prophylaxis: Xarelto Review Statement Review Statement: I have personally discussed and reviewed the patient's visit/currently labs/imaging/decision making with Dr. Salazar, my supervising attending. Greater that 50 minutes spent with patient, 50% of the time spent with this patient was devoted to counseling and coordination of care.
[2024-12-01] MEDS ORDERED: DUONEB NEB PRN (11:09)
[2024-12-01] MEDS: AUGMENTIN 875-125 MG TAB PO SCH (11:11)
--- NOTE | 2024-12-01 11:28 | RS.PTINEVL ---
Subjective Patient information Date of Evaluation: 12/01/24 Date of Arrival on Unit: 11/30/24 Admitted From:: In-House Transfer (Transfer from swing bed to acute) Diagnosis: Pneumonia, s/p R BKA Usual Living Arrangement: Alone Living Arrangement Comments: pt lives alone, however is going to go home with son at Discharge Home Environment: House, Stairs (few) (2 steps ) and Rail Medical History: Hypertension, Arthritis, Vascular Disease and Cancer (malignant melanoma L foot.) Medical History Comments:: Anxiety, Major depressive disorder, GERD, CAD, MS, PAD, SSS, ischemic bowel, osteoporosis LATEX ALLERGY?: No Surgical History: Cholecystectomy, Hysterectomy and CABG Surgical History Comments:: Pacemaker, R ileo profunda femoral bypass, L ilio femoral and profunda femora endarterectomy and patch angioplasty, Redo arterial bypass w bovine carotid artery conduit. Medications: see chart Subjective Information/ Patient Comments:: pt states that she is doing better. pt states she would like to get cleaned up and put on her pajamas. Son asked if pt should be walking as far as she did 2 days ago. Explained to pt that she does not have to walk as far, we are focused on functional distances. Level of function Prior to this admission, the patient could do the following:: Independent Selfcare, Independent ADL's, Independent Ambulation, Partially Dependent Am bulation, Perform Process Pumper/Cooking, Drive and Participated in Social Activities Outside home Current Level of Function: Partially Dependent Current Equipment Used at Home: Walker, wheeled Pain Assessement Location R residual limb: Description: Burning and Sharp Pain Behavior: Guarding and Rubbing Site Pain Aggravating Factors: Changing Position and Exercise/Activity Pain Alleviating Factors: Medication Interventions Objective Patient Orientation: Person, Place and Situation Current Interventions: Oxygen (1 liter, increased to 2 liters with activity per WILMER Dickens) and Telemetry Observation: dressing and bee wrap on Residual limb Range of Motion ROM Right Upper Extremity AROM: WFL's Left Upper Extremity AROM: WFL's Right Lower Extremity AROM: WFL's (with assist, pt holds R knee in flex) Left Lower Extremity AROM: WFL's Muscle Strength Muscle Strength Right Upper Extremity: Mild Weakness (grossly 4 to 4+/5) Left Upper Extremity: Mild Weakness (grossly 4 to 4+/5) Right Lower Extremity: Mild Weakness (hip flex 4/5, knee flex/ext 3/5 no MMT) Left Lower Extremity: Mild Weakness (hip flex 4/5, knee flex/ext 4+/5, ankle 4+/5) Sensation Sensation Right Upper Extremity: Intact/Normal Left Upper Extremity: Intact/Normal Right Lower Extremity: Impaired (pt with phantom limb pain) Left Lower Extremity: Intact/Normal Palpation Palpation Findings: Tenderness (R residual limb) Balance Sitting Balance and Reactions Static Sitting Balance: Good Dynamic Sitting Balance: Good Standing Balance and Reactions Static Standing Balance: Fair Dynamic Standing Balance: Poor Functional Mobility Bed Mobility Comments:: pt sitting up in bedside chair Transfers Sit to Stand: CGA Stand to Sit: CGA Stand Pivot Transfers: CGA Safety Awareness Safety Awareness: Fair GULSHAN INDEX SCORE: n/a Ambulation Ambulation Assistive Device Used: Rolling Walker Orthotic/Prosthetic Device: No Distance: 40ft Assistance needed with Ambulation: CGA Factors Affecting Ambulation: Decreased Balance, Pain, Weakness, Decreased Safety and Limited Endurance Treatment time Units charged Gait trainin Time with patient Length of Evaluation: 18 Total treatment time: 28 Patient Education Education Patient Education: Activity Modification and Education of Plan of Care Teaching Recipient: Patient and Family (son) Teaching Methods: Discussion Comments: discussion with pt's son regarding POC Assessment Assessment Problem List:: Decreased level of function, Requires training/education, Decreased safety/Risk of falls, Weakness, Pain limits previous level of function and Cognitive status limits abilities (pt is impulsive at times and does not call for help) Rehab Potential: Fair Further Therapy Indicated?: Yes Candidate for Swing Bed for Therapy Services?: pt is high functional level feel pt would not require skilled inpatient therapy. Feel pt would benefit from home health or outpatient PT. Evaluation Complexity: HISTORY: Medium, EXAM OF BODY SYSTEMS: Medium, CLINICAL PRESENTATION: Medium and CLINICAL DECISION MAKING: Medium Patient's Goal(s): be as independent as possible Short Term Goals GOAL #1: pt demonstrate rolling and scooting to edge of bed independently. Goal to be met by: 12/04/24 GOAL #2: Transfer sup to/from sit independently Goal to be met by: 12/03/24 GOAL #3: Transfer sit to /from stand SBA Goal to be met by: 12/03/24 GOAL #4: pt amb with rwx 50 ft with CGA x 1 Goal to be met by: 12/03/24 GOAL #5: LLE strength 4+ to 5/5 Goal to be met by: 12/04/24 GOAL #6: pt independent with w/c safety, locking brakes, etc. Goal to be met by: 12/04/24 Care Home Goals GOAL #1: Transfer sit to/from stand independently Goal to be met by: 12/05/24 GOAL #2: amb functional household distance with rwx SB to independent Goal to be met by: 12/05/24 GOAL #3: Ascend/descend 1 step with CGA to min with rwx Goal to be met by: 12/05/24 Plan Plan of Care: Therapeutic EX, Neuromuscular Re-Educ and Therapeutic Activity Other:: gait training Frequency of Treatment: 1-2 X day, as tolerated Duration of Treatment: 4 days Anticipated Discharge Destination: Home Treatment Diagnosis (ICD 10 Codes): s/p R BKA gait difficulty R26.2 impaired balance R26.81 weakness M62.81 Has the Physician been added for Co-signature?: Yes
[2024-12-01] MEDS: LASIX IVP SCH (18:16)
[2024-12-01] MEDS: FLEXERIL PO PRN (22:12)
[2024-12-02 05:40] LABS: BASOPHILS # (AUTO) 0.1 K/uL (0-0.2); BASOPHILS % (AUTO) 0.8 % (0.0-3.0); EOSINOPHILS # (AUTO) 0.6 K/ul (0.0-0.7); EOSINOPHILS % (AUTO) 10.6 % (0.0-7.0); HEMATOCRIT 34.2 % (37.0-47.0); HEMOGLOBIN 10.3 g/dl (12.0-16.0); IMMATURE GRANULOCYTE % (AUTO) 0.3 % (0.0-5.0); LYMPHOCYTES # (AUTO) 1.6 K/uL (0.60-3.4); LYMPHOCYTES % (AUTO) 26.1 (10.0-50.0); MEAN CORPUSCULAR HEMOGLOBIN 27.9 pg (27.0-31.0); MEAN CORPUSCULAR HGB CONC 30.1 (31.8-35.4); MEAN CORPUSCULAR VOLUME 92.7 fl (81.0-99.0); MONOCYTES # (AUTO) 0.5 K/uL (0.4-2.0); NEUTROPHILS # (AUTO) 3.3 K/ul (2.0-6.9); NEUTROPHILS % (AUTO) 54.2 % (42.2-75.2); PLATELET COUNT 478 10^3/uL (140-440); RED BLOOD COUNT 3.69 10^6/ul (4.20-5.40); WHITE BLOOD COUNT 6.01 K/ul (4.6-10.2)
[2024-12-02 05:58] LABS: ALANINE AMINOTRANSFERASE 23.3 U/L (0-35); ALBUMIN 3.71 g/dL (3.5-5.0); BILIRUBIN,TOTAL 0.32 mg/dL (0.2-1.3); BLOOD UREA NITROGEN 17.6 mg/dL (7-17); CALCIUM 9.49 mg/dL (8.4-10.2); CARBON DIOXIDE 30.3 mmol/L (22-30.0); CHLORIDE 95.2 mmol/L (98-107); CREATININE 0.65 mg/dL (0.60-1.30); GLUCOSE 91.6 mg/dL (74-106); POTASSIUM 4.23 mmol/L (3.5-5.1); SODIUM 135.9 mmol/L (134.5-145); TOTAL PROTEIN 7.09 g/dL (6.3-8.2)
--- NOTE | 2024-12-02 09:39 | PCM.PROG ---
Date/Time Seen Date Seen by Provider: 12/02/24 Time Seen by Provider: 09:00 Provider Provider: ABHIJEET KIRAN, [facility] Chief Complaint Chief Complaint: ACUTE HYPOXIC, RESPIRATORY FAILURE Subjective Subjective: Feeling much better. Down to 0.5L of oxygen today. Pain is uncontrolled however. Added on flexeril last night. Will make adjust ments to regimen Objective Appearance: Positive No Apparent Distress and Alert and Oriented x3 Chest/Lungs: Positive Symmetrical With Equal Breath Sounds and Clear to Auscultation Bilaterally (mildly diminished); Negative Rales, Rhonci or Wheezes Heart: Positive RRR and Pulses Normal GI/: Positive Soft, Nontender, Bowel Sounds Normal, No Distention and No Organomegaly Musculoskeletal: Positive Other (incision to BKA healing well, no erythema or drainage, sutures and trice intact) Neurological: Positive Sensation Intact, Motor intact, Reflexes Intact, Alert, Oriented and Other (generalized weakness) Vital Signs Vital Signs: Vital Signs: Last 24 Hours 12/01/24 10:00 12/01/24 10:26 12/01/24 12:53 Temperature Temperature Source Pulse Rate Respiratory Rate Blood Pressure Blood Pressure Mean Blood Pressure Location Blood Pressure Position O2 Sat by Pulse Oximetry 96 95 Oxygen Delivery Method Nasal Cannula Nasal Cannula Oxygen Flow Rate 2 1 Height 5 ft 2 in Weight 47.7 kg Telemetry Type Telemetry Monitoring Telemetry Heart Rate Telemetry SPO2 EKG ND Interval EKG QRS Interval Telemetry Strip Reading 12/01/24 13:00 12/01/24 13:21 12/01/24 14:00 Temperature 98.8 F Temperature Source Temporal Artery Scan Pulse Rate 74 Respiratory Rate 28 H Blood Pressure 120/71 Blood Pressure Mean 87 Blood Pressure Location Right Arm Blood Pressure Position Sitting O2 Sat by Pulse Oximetry 92 L 94 L Oxygen Delivery Method Nasal Cannula Nasal Cannula Oxygen Flow Rate 0.5 0.5 Height Weight Telemetry Type Remote Telemetry Telemetry Monitoring Continues Telemetry Heart Rate 74 Telemetry SPO2 93 EKG ND Interval 0.19 EKG QRS Interval 0.08 Telemetry Strip Reading SR w/PAC's/Occ. PVC 12/01/24 19:00 12/01/24 19:10 12/01/24 20:00 Temperature Temperature Source Pulse Rate Respiratory Rate Blood Pressure Blood Pressure Mean Blood Pressure Location Blood Pressure Position O2 Sat by Pulse Oximetry 93 L Oxygen Delivery Method Nasal Cannula Nasal Cannula Oxygen Flow Rate 0.5 0.5 Height Weight Telemetry Type Remote Telemetry Telemetry Monitoring Continues Telemetry Heart Rate 78 Telemetry SPO2 92 L EKG ND Interval 0.19 EKG QRS Interval 0.08 Telemetry Strip Reading Sinus Rhythm 12/01/24 22:00 12/02/24 00:48 12/02/24 04:58 Temperature 98.7 F 96.9 F L Temperature Source Temporal Artery Scan Temporal Artery Scan Pulse Rate 66 66 Respiratory Rate 20 20 Blood Pressure 130/68 166/94 H Blood Pressure Mean 88 118 Blood Pressure Location Right Arm Left Arm Blood Pressure Position Supine Supine O2 Sat by Pulse Oximetry 93 L 92 L Oxygen Delivery Method Nasal Cannula Nasal Cannula Oxygen Flow Rate 0.5 0.5 Height Weight Telemetry Type Remote Telemetry Telemetry Monitoring Continues Telemetry Heart Rate 60 Telemetry SPO2 94 EKG ND Interval 0.15 EKG QRS Interval 0.07 Telemetry Strip Reading Atrial Paced 12/02/24 05:00 12/02/24 05:05 12/02/24 07:00 Temperature Temperature Source Pulse Rate Respiratory Rate Blood Pressure Blood Pressure Mean Blood Pressure Location Blood Pressure Position O2 Sat by Pulse Oximetry 96 Oxygen Delivery Method Nasal Cannula Oxygen Flow Rate 0.5 Height Weight 47.6 kg Telemetry Type Remote Telemetry Telemetry Monitoring Continues Telemetry Heart Rate 60 Telemetry SPO2 92 L EKG ND Interval 0.22 H EKG QRS Interval 0.06 Telemetry Strip Reading Atrial Paced at 60; prolonged ND interval Lab Results Lab Results: Lab Results: Last 24 Hours 12/02/24 05:14 WBC 6.01 RBC 3.69 L Hgb 10.3 L Hct 34.2 L D MCV 92.7 MCH 27.9 MCHC 30.1 L RDW Coeff of Po 14.0 Plt Count 478 H Immature Gran % (Auto) 0.3 Neut % (Auto) 54.2 Lymph % (Auto) 26.1 [place] % (Auto) 8.0 Eos % (Auto) 10.6 H Baso % (Auto) 0.8 Neut # (Auto) 3.3 Lymph # (Auto) 1.6 [place] # (Auto) 0.5 Eos # (Auto) 0.6 Baso # (Auto) 0.1 Immature Gran # (Auto) 0.0 Sodium 135.9 Potassium 4.23 Chloride 95.2 L Carbon Dioxide 30.3 H Anion Gap 14.63 BUN 17.6 H Creatinine 0.65 Estimated GFR (MDRD) 88.00 BUN/Creatinine Ratio 27.07 Glucose 91.6 Calcium 9.49 Total Bilirubin 0.32 AST 31.0 ALT 23.3 Alkaline Phosphatase 79.0 Total Protein 7.09 Albumin 3.71 Globulin 3.38 Albumin/Globulin Ratio 1.09 Additional Comments Additional Comments: I have independently reviewed and interpreted the labs/EKGs/imaging ordered during this hospital stay. I have reviewed outside records that are available in our EMR that pertain to medical stay including imaging/notes/labs from previous visits. Active Medications Active Medications: Medications Generic Name Dose Route Start Last Admin Trade Name Freq PRN Reason Stop Dose Admin Acetaminophen 650 mg 11/30/24 14:13 Acetaminophen 325 Mg Tablet PO Q4H PRN Pain Albuterol Sulfate 2.5 mg 11/30/24 11:04 Albuterol Sulfate 0.083% Vial.Segundo NEB RTQ4H PRN Wheezing Albuterol/Ipratropium 3 ml 12/01/24 11:09 Ipratropium/Albuterol Vial.Segundo NEB RTQ6H PRN Wheezing Alprazolam 0.25 mg 11/30/24 14:13 12/01/24 20:34 Alprazolam 0.25 Mg Tablet PO 0.25 mg BEDTIME PRN Administration Anxiety Amoxicillin/Clavulanate Potassium 1 tab 12/01/24 11:00 12/02/24 09:14 Amoxicillin/Potassium Clav 875/125 Mg Tablet PO 12/04/24 19:00 1 tab BIDWM2 MARY JANE Administration Ascorbic Acid 500 mg 12/01/24 09:00 12/02/24 09:16 Ascorbic Acid 500 Mg Tablet PO 500 mg DAILY MARY JANE Administration Aspirin 81 mg 12/01/24 07:30 12/02/24 09:15 Aspirin 81 Mg Tablet. PO 81 mg DAILYWM2 MARY JANE Administration Atorvastatin Calcium 40 mg 12/01/24 09:00 12/02/24 09:15 Atorvastatin Calcium 20 Mg Tablet PO 40 mg DAILY MARY JANE Administration Bisacodyl 5 mg 11/30/24 14:31 Bisacodyl 5 Mg Tablet. PO DAILY PRN Constipation Buspirone HCl 5 mg 11/30/24 21:00 12/02/24 09:15 Buspirone Hcl 10 Mg Tablet PO 5 mg 2XD MARY JANE Administration Calcium Carbonate/Glycine 500 mg 11/30/24 14:13 Calcium Carbonate 500 Mg Tab.Chew PO Q6HR PRN Heartburn Citalopram Hydrobromide 40 mg 12/01/24 09:00 12/02/24 09:15 Citalopram Hydrobromide 20 Mg Tablet PO 40 mg DAILY MARY JANE Administration Cyclobenzaprine HCl 10 mg 12/01/24 21:46 12/01/24 22:12 Cyclobenzaprine Hcl 10 Mg Tablet PO 10 mg TID PRN Administration Pain Docusate Sodium 100 mg 11/30/24 21:00 12/02/24 09:16 Docusate Sodium 100 Mg Capsule PO 100 mg BID MARY JANE Administration Doxycycline Hyclate 100 mg 11/30/24 21:00 12/02/24 09:14 Doxycycline Hyclate 100 Mg Capsule PO 12/03/24 20:59 100 mg Q12HR MARY JANE Administration Famotidine 20 mg 11/30/24 17:00 12/02/24 05:00 Famotidine 20 Mg Tablet PO 20 mg BIDAC2 MARY JANE Administration Gabapentin 300 mg 11/30/24 15:00 12/02/24 09:15 Gabapentin 300 Mg Capsule PO 300 mg TID MARY JANE Administration Non-Formulary Medication 2.5 mg 11/30/24 21:00 12/02/24 09:16 Rivaroxaban PO 2.5 mg BID MARY JANE Administration Ondansetron HCl 4 mg 11/30/24 14:13 Ondansetron Hcl 4 Mg Tablet PO Q6H PRN Nausea / Vomiting Oxycodone/Acetaminophen 1 tab 11/30/24 13:13 12/02/24 09:14 Oxycodone/Acetaminophen 10/325 Mg Tablet PO 1 tab Q4HR PRN Administration Pain Pantoprazole Sodium 40 mg 12/01/24 06:00 12/02/24 05:00 Pantoprazole Sodium 40 Mg Vial IVP 40 mg QDAC2 MARY JANE Administration Polyethylene Glycol 17 gm 12/01/24 10:30 12/01/24 10:29 Polyethylene Glycol 17 Gm Powd.Pack PO 17 gm DAILY MARY JANE Administration Sennosides 8.6 mg 11/30/24 21:00 12/02/24 09:16 Sennosides 8.6 Mg Tablet PO 8.6 mg BID MARY JANE Administration Sodium Chloride 1 syr 12/01/24 05:00 12/02/24 05:05 0.9% Sodium Chloride 10 Ml Disp.Syrin IVF 1 syr Q8HR MARY JANE Administration Plan Plan: 1. Acute Hypoxic Respiratory Failure in setting of HAP and CHF - Improving slowly, down to 0.5L this am, nebs, diuresis 2. HAP - zosyn Q6H - transition to PO tomorrow, doxy for atypical coverage, MRSA negative, strep pneumo and legionella pending, respiratory panel negative, CT showing patchy R sided pneumonia and bilateral pleural effusions 3. New onset CHF - last echo 05/2022 EF 55-60% with left diastolic dysfunction, echo completed yesterday showing EF 60%, transition to PO lasix today, I&O, daily weight 4. 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 Briones, has f/u on 12/05. Plan for prosthesis in future. Dressing changes every other day with xeroform over incision, gauze wrap, and then bee wrap. Change prn if soiled. No drainage noted on dressings today. PTOT. 5. 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 pain still out of control, making percocet scheduled today, continue gabapentin 300 mg TID, added flexeril as well. Cont xarelto, aspirin and statin. 6. Mood disorder - Worsened by recent surgery and loss of limb, reasonably so. Cont home meds. 7. Lung Mass - new per family, refer to pulm for lung biopsy to r/o neoplasm DVT Prophylaxis: Xarelto Review Statement Review Statement: I have personally discussed and reviewed the patient's visit/currently labs/imaging/decision making with Dr. Salazar, my supervising attending. Greater that 50 minutes spent with patient, 50% of the time spent with this patient was devoted to counseling and coordination of care.
[2024-12-02] MEDS: PERCOCET 10-325 PO SCH (16:59)
[2024-12-03 05:12] VITALS: BP 106/55; PULSE 60; RESP 18; TEMP 97.9
[2024-12-03 05:28] LABS: BASOPHILS # (AUTO) 0.1 K/uL (0-0.2); BASOPHILS % (AUTO) 1.3 % (0.0-3.0); EOSINOPHILS # (AUTO) 0.6 K/ul (0.0-0.7); EOSINOPHILS % (AUTO) 15.6 % (0.0-7.0); HEMATOCRIT 27.5 % (37.0-47.0); HEMOGLOBIN 8.6 g/dl (12.0-16.0); IMMATURE GRANULOCYTE % (AUTO) 0.8 % (0.0-5.0); LYMPHOCYTES # (AUTO) 1.1 K/uL (0.60-3.4); LYMPHOCYTES % (AUTO) 27.2 (10.0-50.0); MEAN CORPUSCULAR HEMOGLOBIN 28.4 pg (27.0-31.0); MEAN CORPUSCULAR HGB CONC 31.3 (31.8-35.4); MEAN CORPUSCULAR VOLUME 90.8 fl (81.0-99.0); MONOCYTES # (AUTO) 0.4 K/uL (0.4-2.0); MONOCYTES % (AUTO) 11.1 (0-10); NEUTROPHILS # (AUTO) 1.8 K/ul (2.0-6.9); PLATELET COUNT 419 10^3/uL (140-440); RED BLOOD COUNT 3.03 10^6/ul (4.20-5.40); WHITE BLOOD COUNT 3.97 K/ul (4.6-10.2)
[2024-12-03 05:40] LABS: ALANINE AMINOTRANSFERASE 17.9 U/L (0-35); ALBUMIN 2.75 g/dL (3.5-5.0); ALKALINE PHOSPHATASE 61.9 U/L (53-141); ASPARTATE AMINO TRANSFERASE 26.5 U/L (14-36); BILIRUBIN,TOTAL 0.13 mg/dL (0.2-1.3); BLOOD UREA NITROGEN 19.7 mg/dL (7-17); CALCIUM 8.85 mg/dL (8.4-10.2); CARBON DIOXIDE 33.4 mmol/L (22-30.0); CHLORIDE 96.5 mmol/L (98-107); CREATININE 0.58 mg/dL (0.60-1.30); GLUCOSE 91.7 mg/dL (74-106); POTASSIUM 3.9 mmol/L (3.5-5.1); TOTAL PROTEIN 5.68 g/dL (6.3-8.2)
--- NOTE | 2024-12-03 09:43 | DCSUM ---
Admission Date Admission Date: 11/30/24 Discharge Date Discharge Date: 12/03/24 Admission Diagnosis Admission Diagnosis: 1. Acute Hypoxic Respiratory Failure in setting of HAP and CHF 2. HAP 3. New onset CHF 4. 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 Mood disorder Discharge Diagnosis Discharge Diagnosis: 1. Acute Hypoxic Respiratory Failure in setting of HAP and CHF - Unchanged, continues to require 2L 2. HAP - Improving 3. New onset CHF - Improving 4. 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 Dougherty, has f/u on 12/05. 5. 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 Mood disorder - Chronic, stable 7. Lung Mass - new per family, refer to pulm for lung biopsy to r/o neoplasm Hospital Provider Hospital Provider: ABHIJEET KRIAN, [facility] Primary Care Physician Primary Care Physician: MARÍA ELENA AGUIAR Summary of History and Physical Summary of History and Physical: Patient is a 79 year old female with pmhx of CAD s/p CABG, hypertension, SSS s/p pacemaker, hyperlipidemia, ischemic bowel, severe PVD s/p RLE BKA who presents to swingbed program from [facility] for further therapy. Patient was admitted at [facility] from 11/16-11/23. In September of 2024 she underwent bilateral lower ext revascularizations consisting of a right ileo profunda femoral bypass on the right and an extended left illiofemoral and profunda femoral endarterectomy and patch angioplasty on the left. Her LLE showed great improvement with this. However she continued ot have RLE pain and underwent a distal lower ext arterial bypass with bovine carotid artery conduit. She presented again with continued RLE pain. US showed continued occluded vessels. She was admitted and BKA was discussed. She agreed. Post surgery, cilostazol was stopped and she was continued on ASA, xarelto, and statin. Overall she has done well post op but is requiring therapy. Plan is to go home with son following swingbed. Patient complains of some phantom limb pain, specifically her pinky toe. She states her gabapentin was started a couple weeks ago at least. Son states patient does sometimes get confused in late afternoons between 1500- 1800, but it usually resolves by nighttime. Initially, patient was doing very well in swingbed program. Tolerating therapy and meeting goals. Plan was previously discharge today. However, around 5 am on 11/28 patient was coughing, gasping for air, and more con fused than baseline. Found to have O2 sat in the upper 80s. She was placed on 2L and sat improved to low 90s. Chest x-ray completed as well as labs. CBC showed white count of 18. Chest xray showed right sided pneumonia. Due to patient being in and out of the hospital, she has been treated with zosyn to cover hospital acquired pneumonia. Oxygen was weaned down to 1L yesterday morning and patient had been tolerating well. Fevers had resolved until yesterday evening around 1730. At that time, O2 sat was again in the upper 80s and fever was 101. Oxygen increased back to 2L at that time. Another hypoxia episode occurred around 0330 this morning and patient is now requiring 3L. BNP obtained with am labs and found to be >3000. Patient does have history of CABG and DE in the past. Due to continued medical decline despite efforts, patient admitted to inpatient Hospital Course Subjective: During stay, patient was treated for hospital acquired pneumonia and new onset CHF. Treated pneumonia with zosyn and doxycycline. Has 1 dose left of doxy. Transitioned to PO augmentin, has 3 doses left. Also received nebs. Cough is now somewhat productive and mucus is being expectorated. New onset CHF discovered with new pleural effusions on CT scan and elevated BNP. Diuresed well with lasix. Transitioned to PO and tolerated well. Echo completed showed EF of 60%. Patient has continued to require oxygen. 3 step completed today and patient dropped to 86% on RA at rest. D/c home with oxygen on 1-2LPM Recommend continuation of PT/OT for strengthened s/p R BKA. Has follow-up with Dr. Dougherty on 12/05. Plan for prosthesis in future. Continue dressing changes every other day with xeroform over incision, gauze wrap, and then bee wrap. Change prn if soiled. No drainage noted on dressings today. Pain has been difficult to treat. Increased from oxycodone to percocet 10/325. This was initially prn but made scheduled due to uncontrolled pain. Gabapentin was increased from 100 mg tid to 300 mg tid. Also added flexeril to regimen which has provided great relief in the last 24 hours. Lowered dose to 5 mg from 10 due to sleepiness. Incidental finding of lung mass on CT scan during acute problems. New per family. Recommend referral to pulmonology for lung biopsy to r/o neoplasm in near future. Follow-up with PCP in the next 1-2 weeks. Appearance: Pleasant, No Apparent Distress and Alert HEENT: MMM, Supple and No JVD CVS: No Murmur and No Rubs Abdomen: Soft, Non-Tender and No Distention Respiratory: No Dyspnea Extremities: No Edema Vital Signs: Most Recent Vital Signs Temperature 97.9 F 12/03/24 05:10 Temperature Source Oral 12/03/24 05:10 Pulse Rate 60 12/03/24 05:10 Respiratory Rate 18 12/03/24 05:10 Blood Pressure 106/55 L 12/03/24 05:10 Blood Pressure Mean 72 12/03/24 05:10 Blood Pressure Left Arm 108/50 11/30/24 10:10 Blood Pressure Location Left Arm 12/03/24 05:10 Blood Pressure Position Supine 12/03/24 05:10 O2 Sat by Pulse Oximetry 91 L 12/03/24 05:10 Oxygen Delivery Method Nasal Cannula 12/03/24 05:10 Oxygen Flow Rate 0.5 12/03/24 05:10 Height 5 ft 2 in 12/01/24 10:26 Weight 47.7 kg 12/03/24 05:40 Telemetry Type Remote Telemetry 12/03/24 07:00 Telemetry Monitoring Continues 12/03/24 07:00 Telemetry Heart Rate 60 12/03/24 07:00 Telemetry SPO2 90 L 12/03/24 07:00 EKG VA Interval 0.12 12/03/24 01:00 EKG QRS Interval 0.07 12/03/24 07:00 Telemetry Strip Reading Atrial Paced Rhythm 12/03/24 07:00 Lab Results Last 24 Hours: 12/03/24 04:57 WBC 3.97 L RBC 3.03 L Hgb 8.6 L Hct 27.5 L D MCV 90.8 MCH 28.4 MCHC 31.3 L RDW Coeff of Po 14.0 Plt Count 419 Immature Gran % (Auto) 0.8 Neut % (Auto) 44.0 Lymph % (Auto) 27.2 Harper % (Auto) 11.1 H Eos % (Auto) 15.6 H Baso % (Auto) 1.3 Neut # (Auto) 1.8 L Lymph # (Auto) 1.1 [place] # (Auto) 0.4 Eos # (Auto) 0.6 Baso # (Auto) 0.1 Immature Gran # (Auto) 0.0 Sodium 134.0 L Potassium 3.90 Chloride 96.5 L Carbon Dioxide 33.4 H Anion Gap 8.00 BUN 19.7 H Creatinine 0.58 L Estimated GFR (MDRD) 100.00 BUN/Creatinine Ratio 33.96 Glucose 91.7 Calcium 8.85 Total Bilirubin 0.13 L AST 26.5 ALT 17.9 Alkaline Phosphatase 61.9 Total Protein 5.68 L Albumin 2.75 L Globulin 2.93 Albumin/Globulin Ratio 0.93 Discharge Instructions Discharge Planning: Discharge Planning > 40 minutes If patient is discharged with left ventricular systolic dysfunction: no Discharged with a beta zulma? [] If no, why not? [] Discharged with an bee/arb? [] If no, why not? [] Diagnosis: Hospital Acquired Pneumonia, New onset CHF, Recent Below the Knee Amputation Diet: Cardiac Activity as tolerated, continue PT/OT Medications: Lit Follow-up with PCP in the next 1-2 weeks. Follow-up with vascular surgery as scheduled. Oxygen: 1-2 lpm continuous. This may improve and not be required for life. You have been referred to [facility] Pulmonology for the lung mass found on your CT scan. They will be in contact with you to initiate care. If you have any questions or need to speak with them, their contact number is [phone]. Discharge Medications: Medications at Discharge (Home Meds & RX) alprazolam 0.25 mg tablet 0.25 mg PO BEDTIME PRN anxiety 11/23/24 ascorbic acid (vitamin C) 500 mg tablet (C-500) 500 mg PO DAILY 11/23/24 aspirin 81 mg tablet,delayed release (Adult Low Dose Aspirin) 81 mg PO DAILY 11/23/24 atorvastatin 40 mg tablet 40 mg PO DAILY 11/23/24 buspirone 5 mg tablet 5 mg PO 2XD 11/23/24 citalopram 40 mg tablet 40 mg PO DAILY 11/23/24 rivaroxaban 2.5 mg tablet 2.5 mg PO BID 11/23/24 sennosides 8.6 mg-docusate sodium 50 mg tablet (Colace 2-In-1) 1 tab-cap PO BID 11/23/24 acetaminophen 325 mg tablet 650 mg PO Q4H PRN Mild to moderate pain 11/30/24 bisacodyl 5 mg tablet 5 mg PO DAILY PRN constipation 11/30/24 calcium carbonate 500 mg PO Q6HR PRN heartburn 11/30/24 polyethylene glycol 3350 17 gram/dose oral powder (Miralax) 17 g PO DAILY PRN constipation 11/30/24 amoxicillin 875 mg-potassium clavulanate 125 mg tablet 1 tab PO Q12H #3 tabs 12/03/24 cyclobenzaprine 5 mg tablet 5 mg PO TID PRN muscle spasm #90 tabs 12/03/24 doxycycline hyclate 100 mg capsule 100 mg PO Q12HR #1 cap 12/03/24 famotidine 20 mg tablet 20 mg PO BIDAC2 #60 tabs 12/03/24 furosemide 20 mg tablet (Lasix) 20 mg PO DAILY #14 tabs 12/03/24 gabapentin 300 mg capsule 300 mg PO TID #90 caps 12/03/24 oxycodone-acetaminophen 10 mg-325 mg tablet 1 tab PO Q4HR #120 tabs 12/03/24 pantoprazole 40 mg tablet,delayed release (Protonix) 40 mg PO DAILY #30 tabs 12/03/24 Discharge Plan Discharge Discharge Orders: Discharge Patient (ONCE); Ordered 12/03/24 Ordered By: CATARINA RUSH Activity Restrictions/Additional Instructions: Diagnosis: Hospital Acquired Pneumonia, New onset CHF, Recent Below the Knee Amputation Diet: Cardiac Activity as tolerated, continue PT/OT Medications: Lit Follow-up with PCP in the next 1-2 weeks. Follow-up with vascular surgery as scheduled. Oxygen: 1-2 lpm continuous. This may improve and not be required for life. You have been referred to [facility] Pulmonology for the lung mass found on your CT scan. They will be in contact with you to initiate care. If you have any questions or need to speak with them, their contact number is [phone]. Care Plan Goals: Problem: Risk for falls Goal: No falls or injury Instructions: Have no throw rugs on the floor Make sure pathway is clear of all objects Use assistance devices if applicable Problem: Impaired Mobility Goal: Demonstrates improved mobility Instructions: Gradually increase activity as tolerated Assistance devices as indicated Notify provider of declines in mobility Problem: Alteration in Comfort/Pain Goal: Manage pain at a tolerable level Instructions: Monitor character, location and intensity Express expectations of pain relief Pain medication as ordered Position for maximal comfort Pain management prior to activities Problem: Impaired Respiratory Status Goal: Exhibit optimal respiratory function Instructions: Activities as tolerated Apply oxygen as ordered Elevate head of bed Notify MD of increased congestion Patient Disposition: HOME WITH FAMILY CARE Prescriptions: New famotidine 20 mg Tablet 20 mg PO BIDAC2 Qty: 60 0RF doxycycline hyclate 100 mg Capsule 100 mg PO Q12HR Qty: 1 0RF oxycodone-acetaminophen 10-325 mg Tablet 1 tab PO Q4HR Qty: 120 0RF pantoprazole [Protonix] 40 mg tablet,delayed release (DR/EC) 40 mg PO DAILY Qty: 30 0RF furosemide [Lasix] 20 mg tablet 20 mg PO DAILY Qty: 14 0RF cyclobenzaprine 5 mg tablet 5 mg PO TID PRN (Reason: muscle spasm) Qty: 90 0RF Continued atorvastatin 40 mg tablet 40 mg PO DAILY buspirone 5 mg tablet 5 mg PO 2XD citalopram 40 mg tablet 40 mg PO DAILY aspirin [Adult Low Dose Aspirin] 81 mg tablet,delayed release (DR/EC) 81 mg PO DAILY rivaroxaban 2.5 mg tablet 2.5 mg PO BID sennosides-docusate sodium [Colace 2-In-1] 8.6-50 mg tablet 1 tab-cap PO BID alprazolam 0.25 mg tablet 0.25 mg PO BEDTIME PRN (Reason: anxiety) ascorbic acid (vitamin C) [C-500] 500 mg tablet 500 mg PO DAILY bisacodyl 5 mg tablet 5 mg PO DAILY PRN (Reason: constipation) calcium carbonate 500 mg calcium (1,250 mg) tablet,chewable 500 mg PO Q6HR PRN (Reason: heartburn) Rx Instructions: 500mg - 1000mg. as Needed polyethylene glycol 3350 [Miralax] 17 gram/dose powder 17 g PO DAILY PRN (Reason: constipation) acetaminophen 325 mg tablet 650 mg PO Q4H PRN (Reason: Mild to moderate pain) gabapentin 300 mg capsule 300 mg PO TID Qty: 90 0RF amoxicillin-pot clavulanate 875-125 mg tablet 1 tab PO Q12H Qty: 3 0RF Discontinued oxycodone 10 mg tablet 10 mg PO Q4HR PRN (Reason: Moderate to severe pain) gabapentin 100 mg capsule 100 mg PO 3XD hydrocodone-acetaminophen 5-325 mg tablet 2 tab PO Q4H PRN (Reason: Moderate pain) Rx Instructions: 7 days naloxone 4 mg/actuation spray,non-aerosol 4 mg intranasal Q2-3M PRN (Reason: opioid overdose) Rx Instructions: spray 1 dose into ONE nostril; alternate nostrils w each dose until help arrives docusate sodium [Colace] 100 mg capsule 100 mg PO BID omeprazole 40 mg capsule,delayed release(DR/EC) 40 mg PO QDAC2 ondansetron HCl 4 mg tablet 4 mg PO Q6H PRN (Reason: nausea and vomiting) ipratropium-albuterol 0.5 mg-3 mg(2.5 mg base)/3 mL solution for nebulization 3 ml inhalation Q6H Did you review [place] CULIN[place]N for ALL controlled substances?: No Discussed opioids are addictive and Narcan is available by prescription or from pharmacy.: No Condition: Fair Referrals: ABE DOUGHERTY MD [REFERRING] - 12/05/24 11:20 am (PER [facility] INSTRUCTIONS PLEASE ARRIVE AT 11:05)
[2024-12-03 20:28] LABS: SPECIMEN SOURCE Urine (.); STEP PNEUMO ORGANISM ID Not indicated. (.); STREP PNEUMO AG Negative (Negative); STREP PNEUMO BODY FLUID CULT Not indicated. (.)
== END 2024-12-03 13:17 | disposition home or self-care (01) | DRG 291 ==
LOC: MEDSURG B 10:06
PROVIDERS: ADMIT Hospitalist; ATTEND Nurse Practitioner Family